=== PATIENT | female | born 1995 | race Caucasian/White ===

== ENCOUNTER 2023-10-12 05:57 | Emergency (ER) | payer MEDICAID, SELFPAY ==
[2023-10-12 06:07] VITALS: BP 116/61; PULSE 85; RESP 18; TEMP 36.6; O2SAT 95; BMI 38.1
--- NOTE | 2023-10-12 08:24 | ED.GENADULT ---
HPI - General Adult General Chief complaint: Upper Respiratory Symptoms Stated complaint: Sore throat/Congested Time Seen by Provider: 10/12/23 08:22 Source: patient Mode of arrival: ambulatory Limitations: no limitations History of Present Illness HPI narrative: Patient is a 28 year old assigned female at with no reported medical history presenting to the emergency department today with a sore throat and nasal congestion. Patient states that over the last 3 days she has had a sore throat and nasal congestion. Patient denies any dizziness, lightheadedness, abdominal pain, nausea, vomiting, fever, chills, blurry vision, double vision, loss of vision, chest pain, difficulty breathing, shortness of breath, back pain, night sweats, pain with urination, increased urinary frequency, increased urinary urgency, blood in her urine or stool, syncope or a near syncopal episode, recent trauma or falls, bowel incontinence, bladder incontinence, bowel retention, bladder retention, or any other complaints at this time. Onset (ago): day(s) (3) Severity: mild Severity scale (1-10): 2 Relieving factors: none Exacerbating factors: none Associated symptoms: denies other symptoms Treatments prior to arrival: none Related Data Allergies Allergy/AdvReac Type Severity Reaction Status Date / Time No Known Allergies Allergy Verified 10/12/23 06:10 Review of Systems Constitutional: Constitutional: Reports no additional constitutional complaints, Denies chills, Denies fever(s) and Denies night sweats Eyes: Eyes: Reports no additional eye complaints, Denies blurry vision, Denies change in vision, Denies diplopia, Denies eye discharge, Denies loss of vision and Denies eye pain ENT: Denies dizziness and Reports sore throat Cardiovascular: Cardiovascular: Reports no additional cardiovascular complaints, Denies chest pain, Denies lightheadedness, Denies Loss of Consciousness and Denies dyspnea Respiratory: Respiratory: Reports no additional respiratory complaints, Reports cough and Denies dyspnea Gastrointestinal: Gastrointestinal: Reports no additional gastrointestinal complaints, Denies abdominal pain, Denies melena, Denies hematochezia, Denies change in bowel habits and Denies change in stool character Genitourinary: Genitourinary: Denies hematuria, Denies urinary frequency, Denies dysuria, Denies urinary incontinence, Denies urinary hesitancy and Denies urinary urgency Musculoskeletal: Musculoskeletal: Reports no additional musculoskeletal complaints, Denies numbness and Denies tingling Neurologic: Denies dizziness, Denies loss of vision, Denies numbness and Denies tingling Psychiatric: Psychiatric: Reports no additional psychiatric complaints Endocrine: Endocrine: Reports no additional endocrine complaints Hematologic/Lymphatic: Hematologic/Lymphatic: Reports no additional hematologic/lymphatic complaints Allergic/Immunologic: Allergic/Immunologic: Reports no additional allergic/immunologic complaints PMFSH Past Medical History Attestation statement: The following information was validated with the patient. Source: old records reviewed and nursing notes reviewed Onset Date is defined in the Problem List Problems that require an onset date and time if occurred within 24 hrs of arrival to the ED Aortic Dissection and Rupture; Neurologic impairment; Cardiopulmonary Arrest; Endotracheal Intubation; Insertion or Replacement of Mechanical Circulatory Assist Device Medical History (Updated 10/12/23 @ 09:06 by CLAUDINE Barclay) Oligomenorrhea Migraine Social History Social History Advance Directives: No Advance Directives Information Provided: No Physical Exam ED Vital Signs: Vital Signs - 24 hr 10/12/23 06:07 Temperature 97.8 F Pulse Rate 85 Respiratory Rate 18 Blood Pressure 116/61 Pulse Oximetry 95 Oxygen Delivery Method Room Air BMI result Body Mass Index 38.1 Const General: cooperative, no acute distress, alert and awake Nutritional Appearance: well nourished Orientation/consciousness: patient oriented x3 Limitations: no limitations HENMT Head: Yes normal to inspection and Yes atraumatic Ears: hearing grossly normal bilaterally and external ears normal General nose exam: Normal external nose present, no nasal discharge noted and no epistaxis Face and sinus: Yes normal facial exam, No abrasion and No laceration Mouth: Normal oral and palatal mucosa present, no drooling and no muffled voice Eyes General: appearance normal, both eyes and all related structures Periorbital: periorbital findings normal Eyelids: Yes eyelids normal Conjunctivae: conjunctivae normal Pupils: Equal, round and reactive pupils present EOM: EOMs intact bilaterally Neck Neck: Yes normal visual inspection, Yes full ROM and Yes no lymphadenopathy Chest Chest palpation & inspection: normal inspection of the chest Resp Effort & Inspection: normal respiratory effort and able to speak in complete sentences GI Inspection: Yes normal to inspection Neuro General: patient oriented x3 and moves all extremities Cranial nerves: Yes Equal, round and reactive pupils present Cognition (Neuro): normal cognition Motor exam (neuro): 5/5 motor strength present throughout Sensory Exam: Normal double simultaneous stimulation for sensation Coordination: [id number] test normal Extrem General: Yes normal to inspection, Yes full ROM and Yes capillary refill normal Psych Appearance: grossly normal Mental Status: mental status grossly normal Affect: normal affect Attitude: cooperative Thought process: Normal thought process present Thought content: Normal thought content present Insight: Good insight present (Psych) Medical Decision Making Medical Decision Making [facility] Narrative: Patient is a 28 year old assigned female at with no reported medical history presenting to the emergency department today with a sore throat and nasal congestion. Patient's physical exam was unremarkable. Patient's COVID-19 test was positive. Patient's influenza and RSV tests were negative. I explained my physical exam findings as well as all test results to the patient. I answered all questions asked by the patient. I stressed the importance of the patient taking her medication as prescribed. I stressed the importance of the patient following up with her primary care provider. I stressed the importance of the patient returning to the emergency department immediately if her symptoms were to worsen or if she were to develop any dizziness, shortness of breath, difficulty breathing, chest pain, blurry vision, loss of vision, nausea, vomiting, abdominal pain, fever, chills, back pain, or any other complaints. Patient verbalized agreement and understanding with this treatment plan and discharge. Differential Diagnosis Differential Diagnoses: The differential diagnosis associated with the presentation includes COVID+ Influenza RSV Viral illness Admission/Observation Consideration of admission/observation: Escalation of care including admission/observation considered Patient would have been admitted to the hospital had her work up had any findings where hospital admission was appropriate and her clinical presentation warranted hospital admission. Lab Data [facility] Lab Attestation statement: I reviewed the patient's lab results. My interpretation of these results are in the [facility] Rationale portion of this note. Labs: Lab Results 10/12/23 Range/Units 06:12 Influenza Type A (PCR) NEGATIVE (Negative) Influenza Type B (PCR) NEGATIVE (Negative) RSV RNA Qual (PCR) NEGATIVE (Negative) SARS-CoV-2 RNA (RT-PCR) POSITIVE A (Negative) S. pyogenes GrpA LUISITO Negative (Negative) Discharge Plan Discharge Clinical Impression: COVID-19 Patient Disposition: Home, Self-Care Instructions: COVID-19 (Coronavirus Disease 2019) (ED) Additional Instructions: Follow up with your primary care provider. Return to the emergency department immediately if your symptoms worsen or if you develop any dizziness, shortness of breath, difficulty breathing, chest pain, blurry vision, loss of vision, nausea, vomiting, abdominal pain, fever, chills, back pain, or any other complaints. Keaton un seguimiento con lopez proveedor de atenci?n primaria. Regrese al departamento de emergencias inmediatamente si bridget s?ntomas empeoran o si presenta mareos, dificultad para respirar, dificultad para respirar, dolor en el pecho, visi?n borrosa, p?rdida de la visi?n, n?useas, v?mitos, dolor abdominal, fiebre, escalofr?os, dolor de espalda o cualquier otras quejas. Referrals: [facility] [Primary Care Provider] - Stand Alone Forms: Work/School Release Print Language: Beninese
== END 2023-10-12 10:00 | disposition home or self-care (01) ==
PROVIDERS: Emergency Provider Student in an Organized Health Care Education/Training Program
DX: U07.1 COVID-19 (principal); J02.9 Acute pharyngitis, unspecified
CPT/HCPCS: 0241U; 87651; 99282; 99283; J1100

== ENCOUNTER 2023-10-25 11:15 | Outpatient (REF) | payer MEDICAID, SELFPAY ==
[2023-10-25 14:23] LABS: Amylase 54 U/L (28-100); Lipase 18 U/L (8-78)
[2023-10-27 10:30] LABS: Alanine Aminotransferase 14 U/L (0-31); Albumin Level 4.2 g/dL (3.5-5.0); Alkaline Phosphatase 66 U/L (39-117); Aspartate Amino Transferase 12 U/L (5-31); Bilirubin Direct 0.2 mg/dL (0.0-0.5); Bilirubin Total 0.5 mg/dL (0.0-1.0); Total Protein 7.5 g/dL (6.5-8.0)
== END 2023-10-25 11:16 | disposition home or self-care (01) ==
LOC: HO.HHCL 11:15
PROVIDERS: Visit Provider Registered Nurse
DX: R79.89 Other specified abnormal findings of blood chemistry (principal); R19.7 Diarrhea, unspecified
CPT/HCPCS: 36415; 80076; 82150; 83690

== ENCOUNTER 2025-06-28 10:13 | Outpatient (REF) | payer MEDICAID, SELFPAY ==
--- OUTSIDE RECORDS SUMMARY | 2025-06-27 15:30 | XMS_ITS | Encounter Summary ---
Author Organization [facility] Address [address] [place] [address] Care Team Providers Care Bridal Sales Consultant Name Role Phone Nita Marcus Primary Care Provider [phone] Reason for Referral * Imaging (Routine) - Pending Review Specialty Diagnoses / Procedures Referred By Hilary ibrahim Referred To Contact Radiology Diagnoses Nodule of chest wall Procedures US SOFT TISSUE Nita Marcus FNP [address] [place] [address] Phone: tel: fax: Referral ID Status Reason Start Date Expiration Date V isits Requested Visits Authorized [id number] Pending Review 06/27/2025 06/27/2026 1 1 Encounter Details Date Type Department Care Team (Late st Contact Info) Description 06/27/2025 3:30 PM EDT Office Visit [facility] [address] [place] [address] Nita Marcus FNP [address] [place] [address] Nodule of chest wall (Primary Dx); Dietary counseling; Exercise counseling; BMI 40.0-44.9, adult (CMS/HCC) Social History Tobacco Use Types Packs/Day Years Used Date Smoking Tobacco: Never Smokeless Tobacco: Never Alcohol Use Standard Drinks/Week Comments Not Currently 0 (1 standard drink = 0.6 oz pur e alcohol) Depression Answer Date Recorded Patient Health Questionnaire-9 Score 14 01/06/2025 Patient Health Questionnaire-9 Score 14 01/06/2025 Last PHQ-9: Questionnaire Data Not on file 0 01/06/2025 Housing Stability Answer Date Recorded What is your housing situation today? I have henrietta ac 01/06/[address] you li ve. Do you have problems with any of the following? None of the above 01/06/2025 Food Insecurity Answer Date Recorded Within the past 12 months, y ou worried that your food would run out before you got money to buy more: Never True 01/06/2025 Within the past 12 months,th e food you bought just didn't last and you didn't have enough money to get more: Never True Transportation Answer Date Recorded In the past 12 months, has l ack of transportation kept you from medical appts, meetings, work or from getting things needed for daily living? No 01/06/2025 Utilities Answer Date Recorded In the past 12 months, has t he electric, gas, oil or water company threatened to shut off services in your home? No 01/06/2025 Depression Answer Date Recorded Patient Health Questionnaire-2 Score 4 01/06/2025 Internet Access Answer Date Recorded Internet Access Q1 No 01/06/2025 Internet Access Q2 I do not want or need it 12/09 Comments No Sex and Gender Information Value Date Recorded Sex Assigned at Female 08/08/2022 10:39 AM EDT Legal Sex Female 10:39 AM EDT Gender Identity Female 08/08/2022 10:39 AM EDT Sexual Orientation Straight 08/08/2022 10 :39 AM EDT documented as of this encounter Last Filed Vital Signs Vital Sign Reading Time Taken Comments Blood Pressure 128/83 06/27/2025 3:14 PM EDT Pulse 67 06/27/2025 3:14 PM EDT Temperature 36.4 C (97.5 F) 06/27/2025 3:14 PM EDT Respiratory Rate 16 06/27/2025 3:14 PM EDT Oxygen Saturation - - Inhaled Oxygen Concentration - - Weight 103 kg (226 lb) 06/27/2025 3:14 PM EDT Height 160 cm (5' 3 ) 06/27/2025 3:14 PM EDT Body Mass Index 40.03 06/27/2025 3:14 PM EDT documented in this encounter Progress Notes * ZACHERY Rick - 06/27/2025 3:30 PM EDT Subjective: Patricia Reyez is a 30 y.o. female who presents to the office for a sick visit. Interim History: Last PCP visit: 01/06/25. Encouraged to complete outstanding labs. She is also due for pap smear, encouraged to schedule. Acute concerns: Skin bump: Reports began with bump over rib cage under right breast that started approximately 1 month ago. Fluctuates in size. Tender to palpation. No redness or swelling. Hyperpigmentation above lesion. Denies any pus or drainage. No fever, chills. No systemic symptoms. Weight management: Has fluctuated between 210-230lbs over the past 3 years. Currently walks dog daily. Reports sweet tooth, eating excess sugar/sweets throughout the day. She is starting to work on nutrition. Also interested in use of pharmacotherapy for weight management. Interested in initiation of phentermine. Discussed combination phentermine/topiramate pending results of labs. Problem List[1] Family History Problem Relation No Known Problems Mother No Known Problems Father Social History Living situation: living with AMAB partner of 9 years. Denies IPV concerns. Feels safe and supported in relationship. Employment/Education: office cleaning job Substance use: -alcohol: socially -tobacco: none -opioids: none Mental health: denies SI/HI/thoughts of self harm No Known Allergies Review of Systems Constitutional: Negative for chills and fever. Respiratory: Negative for cough, shortness of breath and wheezing. Cardiovascular: Negative for chest pain. Gastrointestinal: Negative for diarrhea, nausea and vomiting. Skin: Skin bump Neurological: Negative for headaches. Psychiatric/Behavioral: Negative for suicidal ideas. Visit Vitals BP 128/83 (BP Location: Left arm, Patient Position: Sitting, BP Cuff Size: Large adult) Pulse 67 Temp 97.5 ??F (36.4 ??C) (Temporal) Resp 16 Ht 5' 3 (1.6 m) Wt 226 lb (103 kg) BMI 40.03 kg/m?? OB Status Having periods Smoking Status Never BSA 2.14 m?? Physical Exam Constitutional: Appearance: Normal appearance. HENT: Head: Atraumatic. Right Ear: External ear normal. Left Ear: External ear normal. Cardiovascular: Rate and Rhythm: Normal rate. Pulmonary: Effort: Pulmonary effort is normal. Skin: Comments: 0.5-1cm nodule inferior to right breast. Firm, mild TTP. hyperpigmentation over lesion. No visible central punctum. Neurological: Mental Status: She is alert and oriented to person, place, and time. Psychiatric: Mood and Affect: Mood normal. Behavior: Behavior normal. Problem List Items Addressed This Visit Endocrine and Metabolic BMI 40.0-44.9, adult ([facility]) Current Assessment & Plan Wt Readings from Last 10 Encounters: 06/27/25 226 lb (103 kg) 01/06/25 223 lb (101 kg) 12/01/23 216 lb (98 kg) 10/25/23 212 lb 2 oz (96.2 kg) 02/23/23 223 lb 4 oz (101 kg) 12/16/21 230 lb 6.4 oz (105 kg) Assessment/Plan Reviewed indications for pharmacotherapy with patient, which is treatment for patient w/ obesity ora patient with a BMI > 27 w/ CV risk factors who have failed lifestyle modifications alone. These are always prescribed in combination with ongoing lifestyle modification; and will be titrated up from the lowest dose. Reviewed nutrition/exercise recommendations. Plan to initiate topiramate/phentermine following review of labs if appropriate. Reviewed med safety and SE. Other Visit Diagnoses Nodule of chest wall - Primary - US soft tissue ordered for further eval of nodule, no active signs of infection Relevant Orders US SOFT TISSUE Dietary counseling Exercise counseling Follow up: 3 months for pap, sooner as needed. Current Medications[2] [1] Patient Active Problem List Diagnosis Polycystic ovary syndrome Oligomenorrhea Gastroesophageal reflux disease Diarrhea Keratosis pilaris Migraines Healthcare maintenance BMI 40.0-44.9, adult ([facility]) [2] Current Outpatient Medications Medication Sig Dispense Refill rizatriptan (Maxalt) 5 MG tablet Take 1 tablet (5 mg) by mouth 1 (one) time if needed for migraine.May repeat in 2 hours if unresolved. Do not exceed 30 mg in 24 hours. 9 tablet 0 No current facility-administered medications for this visit. documented in this encounter Miscellaneous Notes * Assessment & Plan Note - ZACHERY Rick - 06/27/2025 4:34 PM EDTAssociated Problem(s): BMI 40.0-44.9, adult (CMS/HCC) Wt Readings from Last 10 Encounters: 06/27/25 226 lb (103 kg) 01/06/25 223 lb (101 kg) 12/01/23 216 lb (98 kg) 10/25/23 212 lb 2 oz (96.2 kg) 02/23/23 223 lb 4 oz (101 kg) 12/16/21 230 lb 6.4 oz (105 kg) Assessment/Plan Reviewed indications for pharmacotherapy with patient, which is treatment for patient w/ obesity ora patient with a BMI > 27 w/ CV risk factors who have failed lifestyle modifications alone. These are always prescribed in combination with ongoing lifestyle modification; and will be titrated up from the lowest dose. Reviewed nutrition/exercise recommendations. Plan to initiate topiramate/phentermine following review of labs if appropriate. Reviewed med safety and SE. documented in this encounter Plan of Treatment Scheduled Orders Name Type Priority Associated Diagnoses Orde r Schedule US SOFT TISSUE Imaging Routine Nodule of chest wall Expected: 06/27/2025, Expires: 06/27/2026 documented as of this encounter Visit Diagnoses Diagnosis Nodule of chest wall- Primary Dietary counseling Dietary surveillance and counseling Exercise counseling BMI 40.0-44.9, adult (CMS/HCC) documented in this encounter Additional Health Concerns Assessment Noted Time PHQ-9 Depression Total Score: 14 025 2:35 PM EDT documented as of this encounter Care Teams Bridal Sales Consultant Relationship Specialty Start Date End Date Nita Marucs FNP [address] [place] [id number] PCP - General Family Medicine 06/02/22 documented as of this encounter
--- OUTSIDE RECORDS SUMMARY | 2025-06-28 10:17 | XMS_ITS | Encounter Summary ---
Author Organization [facility] Address [address] [place] [address] Care Team Providers Care Senior Cost Analyst Name Role Phone Nita Marcus LOGISTICS PLANNING MANAGER Primary Care Provider [phone] Encounter Details Date Type Department Care Team (Latest Contact Info) Description 06/27/2025 Travel Social History Tobacco Use Types Packs/Day Years [...] AM EDT documented as of this encounter Plan of Treatment Not on file documented as of this encounter Visit Diagnoses Not on filedocumented in this encounter Additional Health Concerns Assessment Noted Time PHQ-9 Depression Total Score: 14 025 2:35 PM EDT documented as of this encounter Care Teams Senior Cost Analyst Relationship Specialty Start Date End Date Nita Marcus FNP [address] [place] [id number] PCP - General Family Medicine 06/02/22 documented as of this encounter
--- OUTSIDE RECORDS SUMMARY | 2025-06-28 10:17 | XMS_ITS | Clinical Summary ---
Author Organization [employer] Address [address] [facility] [address] [place] [address] Care Team Providers Care Salary Manager Name Role Phone Nita Marcus EXECUTIVE [employer] Primary Care Provider [phone] Allergies No known active allergies Medications rizatriptan (Maxalt) 5 MG tabletIndication s:Migraine without status migrainosus, not intractable, unspecified migraine type,Healthcare maintenance Take 1 tablet (5 mg) by mouth 1 (one) time if needed for migraine. May repeat in 2 hours if unresolved. Do not exceed 30 mg in 24 hours. 9 tablet 01/07/2025 Active Active Problems Problem Noted Date Diagnosed Date BMI 40.0-44.9, adult 06/27/2025 Assessment & Plan (06/27/2025 4:34 PM EDT): Wt Readings from Last 10 Encounters: 06/27/25 226 lb (103 kg) 01/06/25 223 lb (101 kg) 12/01/23 216 lb (98 kg) 10/25/23 212 lb 2 oz (96.2 kg) 02/23/23 223 lb 4 oz (101 kg) 12/16/21 230 lb 6.4 oz (105 kg) Assessment/Plan Reviewed indications for pharmacotherapy with patient, which is treatment for patient w/ obesity or a patient with a BMI > 27 w/ CV risk factors who have failed lifestyle modifications alone. These are always prescribed in combination with ongoing lifestyle modification; and will be titrated up from the lowest dose. Reviewed nutrition/exercise recommendations. Plan to initiate topiramate/phentermine following review of labs if appropriate. Reviewed med safety and SE. Healthcare maintenance 06/19/2024 Overview (01/07/2025): Mammo: Routine mammograms starting 40-50 y/o Pap: reports completed at [facility] while undergoing infertility workup. Records requested but no path report. Encouraged to schedule Colonoscopy: routine screening starting 43 y/o Optometry: wears glasses, reports UTD Dental: established with dental home: yes Keratosis pilaris 10/26/2023 Assessment & Plan (10/26/2023 8:19 AM EST): -Encouraged trial of CeraVE SA cream for rough and bumpy skin OTC -Also sent urea lotion to trial if OTC option not effective or too expensive Migraines 10/26/2023 Assessment & Plan (01/07/2025 8:29 PM EDT): Well-controlled, occurring less than once per month. Previous trial of topiramate nightly for prevention, experienced SE including decreased energy, self DC Cont rizatriptan PRN episodic tx. Reviewed med safety and SE. Reviewed lifestyle interventions Assessment & Plan (12/03/2023 2:55 PM EST): Previous trial of topiramate nightly for prevention, experienced SE including decreased energy, self DC Cont rizatriptan PRN episodic tx. Reviewed med safety and SE. Reviewed lifestyle interventions Assessment & Plan (10/26/2023 8:28 AM EST): Previous trial of topiramate nightly for prevention, experienced SE including decreased energy, self DC Start rizatriptan PRN episodic tx. Reviewed med safety and SE. May consider CGRP antagonist if not effective Reviewed lifestyle interventions Diarrhea 02/26/2023 Assessment & Plan (01/07/2025 8:30 PM EDT): Evaluated by [facility] March 2024, symptoms currently improved/resolved Follow up as needed Assessment & Plan (12/03/2023 2:55 PM EST): Approx 1-2 year duration of diarrhea/loose stools that occurs after meals. Has not noted pattern in types of foods that tend to provoke symptoms. No vomiting or nausea. Mild abdominal discomfort. Consider malabsorptive vs functional vs IBS vs infection vs SIBO vs other Initial investigation with lab work neg for Celiac, mild elevation of AST (31) and ALT (75). Repeat hepatic function panel normal. Amylase and lipase WNL. Sed rate WNL, CRP borderline elevated Pt declines any stool studies through PCP office, would prefer to wait for GI referral (referral letter provided to pt today) Assessment & Plan (10/26/2023 8:37 AM EST): Approx 1-2 year duration of diarrhea/loose stools that occurs after meals. Has not noted pattern in types of foods that tend to provoke symptoms. No vomiting or nausea. Mild abdominal discomfort. Consider malabsorptive vs functional vs IBS vs infection vs SIBO vs other Initial investigation with lab work neg for Celiac, mild elevation of AST (31) and ALT (75). Repeat labs pending. Sed rate WNL, CRP borderline elevated Plan: referral to GI given persistence of symptoms. Consider stool/breath sample. Complete pending labs, will include amylase and lipase. Assessment & Plan (02/26/2023 10:03 PM EDT): Approx 1 year duration and occurs after meals. Has not noted pattern in types of foods that tend to provoke symptoms Consider malabsorptive vs functional vs IBS vs other Initial investigation with lab work: Celiac panel, CMP, Sed rate, CRP Discussed potential referral to GI pending results and symptom presentation Polycystic ovary syndrome 01/25/2022 Assessment & Plan (02/26/2023 9:56 PM EDT): Previously followed by [facility] for fertility workup. Interested in scheduling follow up appt to discuss results Encouraged to follow up with office to schedule appt to review results Oligomenorrhea 12/16/2021 Gastroesophageal reflux disease 12/16/2021 Assessment & Plan (02/26/2023 9:55 PM EDT): Continue with famotidine PRN Reviewed lifestyle interventions to decrease symptoms including avoid triggering foods (such as coffee, chocolate, fatty foods), tobacco cessation, eating 2-3 hours before lying down, and weight loss. Encounters Date Type Department Care Team Description 06/27/2025 3:30 PM EDT Office Visit [facility] [address] [place] [address] Nita Marcus, ZACHERY Nodule of chest wall (Primary Dx); Dietary counseling; Exercise counseling; BMI 40.0-44.9, adult (CMS/HCC) 06/27/2025 Travel from Last 3 Months Immunizations Immunization Administration Dates Next Due Pfizer Covid-19 Vaccine 12+ Bivalent 02/23/2023 Pfizer Covid-19 Vaccine 12+ shankar-sucrose (Porter Antoinette ap) 06/15/2021 Tdap 12/16/2021 Family History Medical History Relation Name Comments No Known Problems Father No Known Problems Mother Relation Name Status Comments Father Mother Social History Tobacco Use Types Packs/Day Years Used Date Smoking Tobacco: Never Smokeless Tobacco: Never Tobacco Cessation:Counseling Given: Not Answered Alcohol Use Standard Drinks/Week Comments Not Currently 0 (1 standard drink = 0.6 oz pur e alcohol) Depression Answer Date Recorded Patient Health Questionnaire-9 Score 14 01/06/2025 Patient Health Questionnaire-9 Score 14 01/06/2025 Last PHQ-9: Questionnaire Data Not on file 0 01/06/2025 Housing Stability Answer Date Recorded What is your housing situation today? I have henriettatray ac 01/06/[address] you [...] Orientation Straight 08/08/2022 10 :39 AM EDT Last Filed Vital Signs Vital Sign Reading Time Taken Comments Blood Pressure 128/83 06/27/2025 3:14 PM EDT Pulse 67 06/27/2025 3:14 PM EDT Temperature 36.4 C (97.5 F) 06/27/2025 3:14 PM EDT Respiratory Rate 16 06/27/2025 3:14 PM EDT Oxygen Saturation 99% 12/01/2023 3:16 PM EST Inhaled Oxygen Concentration - - Weight 103 kg (226 lb) 06/27/2025 3:14 PM EDT Height 160 cm (5' 3 ) 06/27/2025 3:14 PM EDT Body Mass Index 40.03 06/27/2025 3:14 PM EDT Plan of Treatment Health Maintenance Due Date Last Done Comments Family Planning (PISQ) 02/17/2008 HPV Vaccines (1 - 3-dose series) 02/17/2008 Hepatitis B Vaccines (1 of 3 - 19+ 3-dose series) 02/17/2012 Pap Smear 2014 Cervical Cancer Screening 2023 HPV/Cotest 2023 COVID-19 Vaccine (4 - 2024-2 6 season) 2025 02/23/2023, 07/15/2021, 06/15/2021 Influenza Vaccine (#1) 2025 Depression Monitoring 07/08/2025 01/06/2025 , 01/06/2025 Alcohol/Substance Use Screening 01/06/2026 01/06/2025 Disability Screening 01/06/2026 01/06/2025 SDOH Screening 01/06/2026 01/06/2025 Tobacco Screening 01/06/2026 01/06/2025 Lipid Panel 12/16/2026 12/16/2021 DTaP/Tdap/Td Vaccines (2 - T d or Tdap) 12/17/2031 12/16/2021 Zoster Vaccines (1 of 2) 2043 RSV Patients and Patients Aged 60 years or older (1 - 1-dose 75+ series) 02/17/2068 HIV Screening Completed 12/16/2021 Hepatitis C Screening Completed 12/16/2021 HIB Vaccines Aged Out No longer eligi ble based on patient's age to complete this topic Hepatitis A Vaccines Aged Out No long er eligible based on patient's age to complete this topic IPV Vaccines Aged Out No longer eligi ble based on patient's age to complete this topic Meningococcal B Vaccine Aged Out No l onger eligible based on patient's age to complete this topic Meningococcal Vaccine Aged Out No antoni michael eligible based on patient's age to complete this topic Pneumococcal Vaccine: Pediatrics (0 to 5 Years) and At-Risk Patients (6 to 49) Years Aged Out No longer eligible b ased on patient's age to complete this topic RSV under 20 months Aged Out No longe r eligible based on patient's age to complete this topic Rotavirus Vaccines Aged Out No longer eligible based on patient's age to complete this topic Procedures Procedure Name Priority Date/Time Associated Diagnosis Comments ZZZ HISTORICAL HEPATITIS C AB W/REFL TO HCV RNA, QN, PCR Routine 12/16/2021 12:00 AM EST HIV 1/2 ANTIGEN/ANTIBODY, FOURTH GENERATION W/RFL Routine 12/16/2021 12:00 AM EST LIPID PANEL, STANDARD Routine 12/16/2021 12:00 AM EST from Last 3 Months or Most Recently Relevant to Health Maintenance Results * HEPATITIS C AB W/REFL TO HCV RNA, QN, PCR (12/16/2021 12:00 AM EST) HEPATITIS C ANTIBODY NON-REACT [facility]ERT[facility] NON-REACT [facility] INDEX 0.01 <1.00 [facility] Comment: HCV antibody was non-reactive. There is no laboratory evidence of HCV infection. In most cases, no further action is required. However, if recent HCV exposure is suspected, a test for HCV RNA (test code 82061) is suggested. For additional information please refer to http://education.Sefaira/faq/NJW37p0 (This link is being provided for informational/ educational purposes only.) 12/16/2021 Sandra Crook NP HISTORICAL/NON ORDERABLE LABS F inal Result Performing Organization Address [facility] de Phone Number [facility] [address] [place] [address], * HIV 1/2 ANTIGEN/ANTIBODY,FOURTH GENERATION W/RFL (12/16/2021 12:00 AM EST) HIV-1/2 ANTIGEN AND ANTIBODIES, 4TH GENERATION W/ REFLEX NON-REACT H[facility]ERTO NON-REACT HUM[facility]ERTO [facility] Comment: HIV-1 antigen and HIV-1/HIV-2 antibodies were not detected. There is no laboratory evidence of HIV infection. PLEASE NOTE: This information has been disclosed to you from records whose confidentiality may be protected by state law. If your state requires such protection, then the state law prohibits you from making any further disclosure of the information without the specific written consent of the person to whom it pertains, or as otherwise permitted by law. A general authorization for the release of medical or other information is NOT sufficient for this purpose. For additional information please refer to http://education.250ok.Organizer/faq/ANV103 (This link is being provided for informational/ educational purposes only.) The performance of this assay has not been clinically validated in patients less than 2 years old. 12/16/2021 Sandra Crook NP LAB BLOOD ORDERABLES Final Resu lt Performing Organization Address [facility] Co de Phone Number [facility] [address] [place] [address], * (ABNORMAL) LIPID PANEL, STANDARD (12/16/2021 12:00 AM EST) Chol/HDLC Ratio 3.3 <5.0 (calc) [facility] Cholesterol, Total 139 <200 mg/dL [facility] HDL Cholesterol 42(L) > OR = 50 mg/dL [facility] LDL Cholesterol 82 mg/dL (calc) [facility] Comment: Reference range: <100 Desirable range <100 mg/dL for primary prevention; <70 mg/dL for patients with CHD or diabetic patients with > or = 2 CHD risk factors. LDL-C is now calculated using the Ernie calculation, which is a validated novel method providing better accuracy than the Friedewald equation in the estimation of LDL-C. Valeriy CALDERÓN et al. SAVANNAH. 2013;310(19): 5335-9524 (http://education.Dogecoin.Organizer/faq/EZF930) Non-HDL Cholesterol 97 <130 mg/dL (calc) [facility] Comment: For patients with diabetes plus 1 major ASCVD risk factor, treating to a non-HDL-C goal of <100 mg/dL (LDL-C of <70 mg/dL) is considered a therapeutic option. Triglycerides 74 <150 mg/dL [facility] 12/16/2021 us Sandra Crook [employer]CHO[employer] GUIDANCE COUNSELOR LAB BLOOD ORDERABLES Final Resu lt [facility] [address] from Last 3 Months or Most Recently Relevant to Health Maintenance Insurance [place] [address] C3 Care Teams Salary Manager Relationship Specialty Start Date End Date Nita Marcus FNP [address] [place] [id number] PCP - General Family Medicine 06/02/22
[2025-06-28 10:31] LABS: MANUAL DIFF FLAG NO
[2025-06-28 11:06] LABS: Hematocrit 38.7 % (37.0-47.0); Hemoglobin 13.2 g/dl (12.0-16.0); Imm Gran Abs Auto 0.04 X10*3/uL (0.00-0.03); Imm Gran Pct Auto 0.5 % (0.0-0.4); Lymphocytes Absolute Auto 3.0 X10*3/uL (1.2-4.9); Mean Corpuscular HGB Conc 34.1 g/dl (31.0-35.0); Mean Corpuscular Hemoglobin 30.3 pg (27.0-33.0); Mean Corpuscular Volume 88.8 fL (80.0-98.0); NRBC Abs Auto 0.000 X10*3/uL (0.0-0.012); NRBC Pct Auto 0.0 /100WBC (0.0-0.2); Platelet Count 318 X10*3/uL (160-400); Red Blood Count 4.36 X10*6/uL (4.20-5.50); White Blood Count 7.8 X10*3/uL (4.8-10.8)
[2025-06-28 11:17] LABS: Hemoglobin A1C 131.0612 umol/L; Total Hemoglobin (HGBA1C) 3492.6447 umol/L
[2025-06-28 11:41] LABS: Alanine Aminotransferase 41 U/L (0-31); Albumin Level 4.4 g/dL (3.5-5.0); Alkaline Phosphatase 78 U/L (39-117); Anion Gap 9 (12-20); Aspartate Amino Transferase 32 U/L (5-31); Blood Urea Nitrogen 13 mg/dL (9-16); Calcium 8.9 mg/dL (8.4-10.2); Carbon Dioxide 25 mmol/L (22-29); Chloride 110 mmol/L (96-108); Cholesterol 135 mg/dL (<200); Estimated Glomerular Filt Rate > 60; HDL Cholesterol 46 mg/dL (>40); Potassium 4.1 mmol/L (3.3-5.1); Sodium 140 mmol/L (135-145); Total Protein 7.2 g/dL (6.5-8.0); Triglycerides 53 mg/dL (<150)
[2025-06-28 11:57] LABS: HIV Num 1 0.08 S/CO (0.00-0.99)
[2025-07-02 00:54] LABS: HCV Log PCR <1.18 NOT DETECTED Log IU/mL (NOT DETECTED); HepC Viral Load <15 NOT DETECTED IU/mL (NOT DETECTED)
== END 2025-06-28 10:14 | disposition home or self-care (01) ==
LOC: HO.LAB 10:13
PROVIDERS: PCP Registered Nurse; Visit Provider Registered Nurse
DX: Z00.00 Encounter for general adult medical examination without abnormal findings (principal); Z11.3 Encounter for screening for infections with a predominantly sexual mode of transmission; Z11.4 Encounter for screening for human immunodeficiency virus [HIV]; Z11.59 Encounter for screening for other viral diseases
CPT/HCPCS: 36415; 80053; 80061; 83036; 84443; 85025; 86592; 87389; 87522